=== PATIENT | male | born 1970 | race Caucasian/White ===

== ENCOUNTER 2021-09-12 08:43 | Outpatient (CLI) | payer BC, SELFPAY ==
--- NOTE | ~2021-09-12 | XR_ITS ---
XR shoulder LT min 2V DATE: 09/12/2021 09:07 INDICATION: Left shoulder pain, chronic limited range of motion TECHNIQUE: 3 views COMPARISON: None FINDINGS: There is degenerative spurring and some prominent soft tissue calcification/ossification at the left acromioclavicular joint. Normal alignment at the acromioclavicular and glenohumeral joints. No fracture, dislocation, periosteal reaction or bone destruction is detected. IMPRESSION: Degenerative change and prominent soft tissue calcification/ossification in the region of the left acromioclavicular joint Reviewed, dictated and finalized at location B. ITE MAN IMPRESSION: Degenerative change and prominent soft tissue calcification/ossific ation in the region of the left acromioclavicular joint
--- NOTE | ~2021-09-12 | XR_ITS ---
XR shoulder RT min 2V DATE: 09/12/2021 09:07 INDICATION: Right shoulder pain, limited range of motion TECHNIQUE: 3 views COMPARISON: None FINDINGS: There is prominent soft tissue calcification/ossification around the right acromioclavicula r joint. No significant abnormal right shoulder calcification is noted otherwise. There is normal alignment at the nitin clavicular and glenohumeral joints. No fracture or dislocatio n, periosteal reaction or bone destruction is noted. Degenerative spurring of the thoracic spine is noted at T7-8, T8-9; thoracic spine is only partially visualized. IMPRESSION: Prominent soft tissue calcification/ossification at the, clavicular joint area Reviewed, dictated and finalized at location B. ON ENGINEER
== END 2021-09-12 08:44 | disposition home or self-care (01) ==
PROVIDERS: PCP Emergency Medicine; Visit Provider Orthopaedic Surgery
DX: M25.511 Pain in right shoulder (principal); M25.512 Pain in left shoulder
CPT/HCPCS: 73030

== ENCOUNTER → 2021-09-21 15:16 | Outpatient (CLI) | payer BC, SELFPAY ==
--- NOTE | ~2021-09-21 | MR_ITS ---
EXAMINATION: MR shoulder LT wo con DATE: 09/21/2021 15:57 INDICATION: Left shoulder pain. TECHNIQUE: Magnetic resonance imaging (MRI) of the left shoulder was performed without intravenous co ntrast. Sequences included axial PD-weighted FS FSE, coronal oblique PD-weighted FS FSE and T2-weight ed FS FSE, and sagittal oblique T2-weighted FS FSE and T1-weighted FSE. COMPARISON: Left shoulder radiographs 09/12/2021 FINDINGS: Coracoacromial arch: The acromion undersurface is curved in morphology (type II). There is severe acromioclavicular joint osteoarthritis including inferiorly directed osteophytes. There is a physiologic volume of fluid in t he subacromial/subdeltoid bursa. Rotator cuff: There is mild supraspinatus and infraspinatus tendinopathy. Teres minor tendon is normal. There is mo derate subscapularis tendinopathy. No tear. There is no asymmetric fatty atrophy of the rotator cuff muscle bellies. Biceps tendon and glenoid labrum: Biceps tendon is in bicipital. Intra-articular biceps tendon is normal. There is a tear of the glenoi d labrum from 10:00 to 12:00 (SLAP tear). Anterosuperior glenoid labrum is absent, and there is thick ening of middle glenohumeral ligament, consistent with a [place] complex. Fluid: There is a small glenohumeral joint effusion. Bones/cartilage: Glenoid cartilage is normal. There is cartilage surface irregularity of humeral head medially. IMPRESSION: 1. Moderate rotator cuff tendinopathy. No tear. 2. Mild humeral head chondrosis. SLAP tear. 3. Small glenohumeral joint effusion. 4. Severe acromioclavicular joint osteoarthritis. Reviewed, dictated and finalized at location E. F PHYSICAL THERAPY ASSISTANT
== END ==
PROVIDERS: Visit Provider Orthopaedic Surgery
DX: M25.412 Effusion, left shoulder (principal); M19.012 Primary osteoarthritis, left shoulder
CPT/HCPCS: 73221